=== PATIENT | female | born 1990 | race Caucasian/White ===

== ENCOUNTER 2017-11-16 07:49 | Emergency (ER) | payer MEDICAID ==
[~2017-11-16] VITALS: Ht 162.6 cm; Wt 75.0 kg
[2017-11-16 07:50] VITALS: BP 147/93; PULSE 89; RESP 16; TEMP 98.3; O2SAT 99
--- NOTE | 2017-11-16 08:57 | PD ---
HPI Chief Complaint: Headache Time Seen by Provider: 08:24 Travel History International Travel<30 days: No Contact w/Intl Traveler<30days: No Traveled to known affect area: No History of Present Illness HPI 27-year-old female presents to the emergency department complaint of a migraine headache that onset at approximately 2 AM this morning while at work and is requesting a work release note to return back to work. Her work told her she was not allowed to come back to work until she had work release from a doctor. She has history of migraine headaches and her current headache is consistent with past headaches. She says she gets migraine headaches 2-3 times per month. Reports feeling nauseated without vomiting. Denies focal deficits or weakness. Headache is generalized. Rates headache 5/10. Has taken Tylenol for symptom management. Says she usually takes Aleve and that works for her. Throbbing in sensation. Headache is aggravated by standing in front of a heated oven cooking; says she got too hot. Typically relieved by Aleve. Does not have an established primary care provider. Denies other significant past medical history. No known allergies. Has no other medical complaints. No other modifying factors or associated signs and symptoms. PFSH Past Medical History ?: Not LMP: OCT 2017 Social History Tobacco Use: No Allergies-Medications (Allergen,Severity, Reaction): Coded Allergies: No Known Allergies (Verified Allergy, Unknown, 11/16/17) Reported Meds & Prescriptions Reported Meds & Active Scripts Active No Active Prescriptions or Reported Medications Review of Systems Except as stated in HPI: all other systems reviewed are Neg Physical Exam Narrative GENERAL: Well-nourished, well-developed female patient, in no acute distress SKIN: Warm and dry. HEAD: Atraumatic. Normocephalic. EYES: Pupils equal and round. No scleral icterus. No injection or drainage. PERRLA. EOMI. ENT: Mucosa pink and moist. Airway patent. NECK: Trachea midline. No lymphadenopathy. CARDIOVASCULAR: Regular rate. RESPIRATORY: No accessory muscle use. GASTROINTESTINAL: Rounded. MUSCULOSKELETAL: No obvious deformities. No clubbing. No cyanosis. No edema. NEUROLOGICAL: Awake and alert. Oriented 3. No obvious cranial nerve deficits. Motor grossly within normal limits. Normal speech. Moves all extremities. 5/5 strength to all extremities. PSYCHIATRIC: Appropriate mood and affect; insight and judgment normal. Data Data Last Documented VS Vital Signs Date Time Temp Pulse Resp B/P (MAP) Pulse Ox O2 Delivery O2 Flow Rate FiO2 11/16/17 07:50 98.3 89 16 147/93 (111) 99 Room Air Orders Orders Naproxen (Naprosyn) (11/16/17 09:00) Ed Discharge Order (11/16/17 08:58) MDM Medical Decision Making Medical Screen Exam Complete: Yes Emergency Medical Condition: Yes Medical Record Reviewed: Yes Differential Diagnosis Medical release from work, migraine headache, General headache Narrative Course 27-year-old female with history of migraine headaches requesting a work release note to return back to work tonight. She was sent home early from work because of her headache. Her current headache is consistent with headaches that she has 2-3 times per month. I did not find the patient requesting a work release note back to work a medical emergency. The patient then changed her story and said that she does currently have a headache and it hasn't gone away. At first she told me she had not taken any medications for her headache and then she changed her story and said she had taken Tylenol and her headache still persists. I will order naproxen for the patient and provide her with a work release note. Instructed patient to follow up with neurology. Instructed patient to follow up with primary care provider. Patient verbalizes understanding and agreement with treatment plan. Patient is medically cleared and stable for discharge. Discussed reasons to return to the emergency department. Patient agrees with treatment plan. The patients vital signs are stable and the patient is stable for outpatient follow-up and treatment. Patient discharged home, stable and in no acute distress. Diagnosis Primary Impression: Headache Qualified Codes: R51 - Headache Referrals: Neurologist Primary Care Physician Patient Instructions: General Instructions, Migraine Headache (ED) Departure Forms: Tests/Procedures, Work Release Enter return to work date: Nov 17, 2017 Additional Instructions: Ibuprofen or Tylenol as directed and as needed to reduce headache Get plenty of rest: do not over sleep rest and relax in a dark, quiet room as needed Place an ice pack on the back of her neck to reduce head pain as needed Keep a headache diary of what triggers her headaches and what treatment is most effective Avoid identifiable triggers Avoid smoking, alcohol and caffeine consumption Reduce stress Follow-up with primary care provider within 1-2 days Follow-up with neurology Return immediately to the emergency department with worsening symptoms Med/Other Pt SpecificInfo: No Change to Meds, No Meds Exist/No RX given Scripts No Active Prescriptions or Reported Meds Disposition: 01 DISCHARGE HOME Condition: Stable Monica Frank Nov 16, 2017 08:57
[2017-11-16] MEDS ORDERED: NAPROXEN 500 MG TAB PO ONE (09:00)
== END 2017-11-16 09:33 | disposition home or self-care (01) ==
LOC: NEPD 07:49
DX: G43.909 Migraine, unspecified, not intractable, without status migrainosus (principal)
CPT/HCPCS: 99283

== ENCOUNTER 2017-11-25 07:55 | Emergency (ER) | payer MEDICAID ==
[~2017-11-25] VITALS: Ht 162.6 cm; Wt 77.2 kg
[2017-11-25 08:00] VITALS: BP 150/105; PULSE 93; RESP 18; TEMP 98.5; O2SAT 97
--- NOTE | 2017-11-25 08:36 | PD ---
Physical Exam Time Seen by Provider: 08:33 Narrative 27yo female c/o dysuria x 1 week, lower abd/pelvic pain x 3-4 days. +abnormal vaginal dc and odor for awhile. LMP 3 weeks ago. No contraception use. Denies fevers. Vomiting yesterday. Patient seen in triage. VS reviewed. Awaiting bed placement. See next providers note for final patient disposition. Data Data Last Documented VS Vital Signs Date Time Temp Pulse Resp B/P (MAP) Pulse Ox O2 Delivery O2 Flow Rate FiO2 11/25/17 08:00 98.5 93 18 150/105 (120) 97 Orders Orders Urinalysis - C+S If Indicated (11/25/17 08:06) Ed Urine Pregnancytest Poc (11/25/17 08:06) Labs Laboratory Tests Test 11/25/17 08:13 Urine Color YELLOW Urine Turbidity HAZY Urine pH 6.0 Urine Specific [place] 1.018 Urine Protein TRACE mg/dL Urine Glucose (UA) NEG mg/dL Urine Ketones NEG mg/dL Urine Occult Blood MOD Urine Nitrite NEG Urine Bilirubin NEG Urine Urobilinogen LESS THAN 2.0 MG/DL Urine Leukocyte Esterase TRACE Urine RBC 8 /hpf Urine WBC 2 /hpf Urine Squamous Epithelial Cells 10 /hpf Urine Bacteria FEW /hpf Urine Mucus FEW /lpf Microscopic Urinalysis Comment CULT NOT INDICATED MDM Supervised Visit with BRET: No Scripts No Active Prescriptions or Reported Meds Monica Frank Nov 25, 2017 08:36
[2017-11-25 08:58] LABS: BACTERIA, URINE FEW /hpf; BILIRUBIN, URINE NEG (NEG); BLOOD, URINE MOD (NEG); GLUCOSE,URINE NEG (NEG); KETONE, URINE NEG (NEG); MUCUS URINE FEW /lpf (OCC); NITRITE,URINE NEG (NEG); SQUAMOUS EPITHELIAL CELL URINE 10 /hpf (0-5); URINE COLOR YELLOW (YELLW/STRAW); URINE LEUKOCYTE ESTERASE TRACE (NEG)
== END 2017-11-25 14:54 | disposition left against medical advice (07) ==
LOC: NETRI 07:55
DX: R30.0 Dysuria (principal); R10.30 Lower abdominal pain, unspecified; N89.8 Other specified noninflammatory disorders of vagina
CPT/HCPCS: 81001; 84703; 99283